=== PATIENT | female | born 1970 | race Caucasian/White ===

== ENCOUNTER 2018-02-22 20:39 | Emergency (ER) | payer SELFPAY ==
[2018-02-22 20:50] VITALS: BP 144/93
[2018-02-22] MEDS ORDERED: predniSONE TAB* 20 MG PO ONE (21:29)
--- NOTE | 2018-02-22 21:34 | UC ---
Skin Complaint HPI - HPI Summary HPI Summary: Patient complains of recurrent rash to the bilateral forearms, and feet x 1-2 months. Denies fever, cough, sore throat, CP, SOB, facial swelling, oral swelling, N/V/D, abdominal pain, change in urine or change in BM. Patient has been seen by primary care for this rash and has been on three 5 day courses of prednisone for same. Rash resolves each time after course of prednisone and then returns. Rash is pruritic, nonpainful. Medical history is none. Course of prednisone finished 2 weeks ago. - History of Current Complaint Chief Complaint: UCGeneralIllness Time Seen by Provider: 02/22/18 20:57 Stated Complaint: RASH Hx Obtained From: Patient Hx Last Menstrual Period: 02/02/18 Onset/Duration: Gradual Onset Skin Exposure Onset/Duration: Weeks Ago Timing: Intermittent Episodes Lasting: Current Severity: None Pain Intensity: 0 Pain Scale Used: 0-10 Numeric Location: Hand (Right), Hand (Left), Foot (Right), Foot (Left) Character: Pruritus, Redness Aggravating Factor(s): Nothing Alleviating Factor(s): Nothing Associated Signs & Symptoms: Positive: Negative - Allergy/Home Medications Allergies/Adverse Reactions: Allergies Allergy/AdvReac Type Severity Reaction Status Date / Time tramedol Allergy Hives Uncoded 02/22/18 20:50 Home Medications: Home Medications Aspirin/Acetaminophen/Caffeine [Excedrin Extra Strength Caplet] 1 tab PO Q8HR PRN 02/22/18 [History Confirmed 02/22/18] diphenhydrAMINE HCl [Benadryl Allergy] 25 mg PO Q12HR 02/22/18 [History Confirmed 02/22/18] Review of Systems Constitutional: Negative Skin: Rash Eyes: Negative ENT: Negative Respiratory: Negative Cardiovascular: Negative Gastrointestinal: Negative Genitourinary: Negative Motor: Negative Neurovascular: Negative Musculoskeletal: Negative Neurological: Negative Is Patient Immunocompromised?: No All Other Systems Reviewed And Are Negative: Yes PMH/Surg Hx/FS Hx/Imm Hx Previously Healthy: Yes - Surgical History Surgical History: None - Family History Known Family History: Positive: Other - cancer - Social History Alcohol Use: None Substance Use Type: None Smoking Status (MU): Heavy Every Day Tobacco Smoker Physical Exam - Summary Physical Exam Summary: Blanchable maculopapular rash on the dorsal surface of bilateral hands, bilateral feet and volar surface of bilateral distal forearms. Triage Information Reviewed: Yes Appearance: Well-Appearing Vital Signs: Initial Vital Signs Temp 98.6 F 02/22/18 20:44 Pulse 95 02/22/18 20:44 Resp 16 02/22/18 20:44 BP 144/93 02/22/18 20:44 Pulse Ox 99 02/22/18 20:44 Vital Signs Reviewed: Yes Eye Exam: Normal ENT Exam: Normal Neck exam: Normal Respiratory Exam: Normal Cardiovascular Exam: Normal Abdominal Exam: Normal Musculoskeletal Exam: Normal Neurological Exam: Normal Psychological Exam: Normal Skin: Positive: rashes Course/Dx - Course Course Of Treatment: Patient complains of recurrent rash to the bilateral forearms, and feet x 1-2 months. Denies fever, cough, sore throat, CP, SOB, facial swelling, oral swelling, N/V/D, abdominal pain, change in urine or change in BM. Patient has been seen by primary care for this rash and has been on three 5 day courses of prednisone for same. Rash resolves each time after course of prednisone and then returns. Rash is pruritic, nonpainful. Medical history is none. Course of prednisone finished 2 weeks ago. Physical exam: Blanchable maculopapular rash on the dorsal surface of bilateral hands, bilateral feet and volar surface of bilateral distal forearms. Vital signs normal. Patient started on prednisone 60 mg by mouth here in the UC. Rx for prednisone 40mg x 5 days. Follow-up with dermatology. Patient understands and agrees with plan - Diagnoses Provider Diagnoses: rash Discharge - Sign-Out/Discharge Documenting (check all that apply): Patient Departure All imaging exams completed and their final reports reviewed: No Studies - Discharge Plan Condition: Stable Disposition: HOME Prescriptions: predniSONE TAB* [Deltasone 20 MG TAB*] 40 mg PO DAILY 5 Days #5 tab Patient Education Materials: Acute Rash (ED) Referrals: Bonnie Hensley MD [Primary Care Provider] - Additional Instructions: Follow-up with dermatology. - Billing Disposition and Condition Condition: STABLE Disposition: Home - Attestation Statements Provider Attestation: Per institutional requirements, I have reviewed the chart, however, I was not consulted specifically or made aware of this patient by the midlevel provider. I did not personally evaluate, interact with , or disposition this patient.
== END 2018-02-22 21:40 | disposition home or self-care (01) ==
LOC: UCEAST 20:39
DX: R21 Rash and other nonspecific skin eruption (principal); Z88.5 Allergy status to narcotic agent; F17.200 Nicotine dependence, unspecified, uncomplicated
CPT/HCPCS: 99212; G0463; J7512

== ENCOUNTER 2018-11-19 20:48 | Emergency (ER) | payer OTHER ==
[2018-11-19] MEDS ORDERED: diPHENhydraMINE IV* 50 MG/ML 1 ml VIAL (BENADRYL) IV ONE (21:01)
[2018-11-19] MEDS ORDERED: Dexamethasone IV* 4 MG/ML 1 ML (4 MG) IV SLOW PU ONE (21:01)
[2018-11-19] MEDS ORDERED: Famotidine IV* 10 MG/ML 2 ML (20 mg) IV SLOW PU ONE (21:01)
[2018-11-19] MEDS ORDERED: NS 0.9% 1000 ML** 1,000 ML IV ONE (21:02)
[2018-11-19] MEDS ORDERED: Albuterol/Ipratropium NEB.SOL* Albuterol 2.5 MG/Ipratropium 0.5 MG 3 ML INH ONE ×2 (21:02→21:21)
[2018-11-19] MEDS ORDERED: Albuterol/Ipratropium NEB.SOL* Albuterol 2.5 MG/Ipratropium 0.5 MG 3 ML ONE (21:03)
[2018-11-19 21:21] VITALS: BP 167/97
--- NOTE | 2018-11-19 21:25 | UC ---
Shortness of Breath HPI - HPI Summary HPI Summary: Patient is a 48-year-old female who presents to the urgent care with a chief complaint of shortness of breath, generalized itching, rash in the chest, dry cough, similar symptoms as when I have an allergic reaction. The patient reports that she was working at [employer] where there was a lot of dust, and then she ate a chocolate which had coconut. 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 After she ate she developed the above symptoms. Patient has no significant past medical history. - History of Current Complaint Chief Complaint: UCRespiratory Stated Complaint: ALLERGIC REACTION Time Seen by Provider: 11/19/18 20:57 Hx Obtained From: Patient Hx Last Menstrual Period: 02/02/18 Onset/Duration: Sudden Onset Timing: Constant Current Severity: Moderate Dyspnea At: Rest - Allergy/Home Medications Allergies/Adverse Reactions: Allergies Allergy/AdvReac Type Severity Reaction Status Date / Time tramedol Allergy Hives Uncoded 02/22/18 20:50 PMH/Surg Hx/FS Hx/Imm Hx Previously Healthy: Yes - Surgical History Surgical History: None - Family History Known Family History: Positive: Other - cancer - Social History Alcohol Use: None Substance Use Type: None Smoking Status (MU): Heavy Every Day Tobacco Smoker Review of Systems All Other Systems Reviewed And Are Negative: Yes Constitutional: Positive: Negative Skin: Positive: Rash Eyes: Positive: Negative ENT: Positive: Negative Respiratory: Positive: Shortness Of Breath, Cough Cardiovascular: Positive: Negative Gastrointestinal: Positive: Negative Genitourinary: Positive: Negative Motor: Positive: Negative Neurovascular: Positive: Negative Musculoskeletal: Positive: Negative Neurological: Positive: Negative Psychological: Positive: Negative Is Patient Immunocompromised?: No Physical Exam - Summary Physical Exam Summary: VITAL SIGNS: Reviewed. GENERAL: Patient is a well developed and nourished female with some distress secondary to the shortness of breath. However, she is able to speak in partial sentences. HEAD AND FACE: Normocephalic and atraumatic. EYES: PERRLA, EOMI x 2, No injected conjunctiva. EARS: Hearing grossly intact. Ear canals and tympanic membranes WNL MOUTH: Dry oral mucosa. NECK: Supple, trachea is midline, no adenopathy, no JVD, no carotid bruit. CHEST: Symmetric, No intercostal or abdominal retraction, LUNGS: Diffuse bilateral wheezing and decreased breath sounds.No crackles. CVS: RRR,, S1 and S2 present, no murmurs or gallops appreciated. ABDOMEN: Soft, non-tender. No signs of distention. Positive BS. No rebound, no guarding, and no masses palpated. EXTREMITIES: FROM in all major joints, no edema, no cyanosis or clubbing. NEURO: Alert and oriented x 3. No acute neurological deficits. Speech is normal and follows commands. SKIN: Dry and warm Triage Information Reviewed: Yes Appearance: Other: - Dyspneic and tachycardic Vital Signs: Initial Vital Signs Temp 98 F 11/19/18 21:18 Pulse 97 11/19/18 21:18 Resp 24 11/19/18 21:18 BP 151/91 11/19/18 21:18 Pulse Ox 96 11/19/18 21:18 Shortness of Breath Dx - Course Course Of Treatment: In the urgent care the patient is having decreased breath sounds and diffuse wheezing. There is no swelling of the throat, is no swelling of the tongue or lips. Therefore, the patient was started and an IV access, IV fluids were started, and she was given Benadryl, Decadron, Pepcid and DuoNeb. I discussed the case with Dr. Steinberg and agrees for transfer to the ED. - Differential Dx/Diagnosis Provider Diagnosis: Allergic reaction Discharge - Sign-Out/Discharge Documenting (check all that apply): Patient Departure All imaging exams completed and their final reports reviewed: No Studies - Discharge Plan Condition: Stable Disposition: TRANS HIGHER LVL OF CARE FAC Patient Education Materials: Urticaria (ED) Referrals: Elizabeth Mckeon DO [Primary Care Provider] - Additional Instructions: Patient is being transfer to the ED via ambulance. - Billing Disposition and Condition Condition: STABLE Disposition: Trans Higher Lvl of Care Fac
== END 2018-11-19 21:40 | disposition short-term general hospital (02) ==
LOC: UCEAST 20:48
DX: T78.1XXA Other adverse food reactions, not elsewhere classified, initial encounter (principal); R21 Rash and other nonspecific skin eruption; L29.9 Pruritus, unspecified; R06.02 Shortness of breath; X58.XXXA Exposure to other specified factors, initial encounter; F17.210 Nicotine dependence, cigarettes, uncomplicated
CPT/HCPCS: 96361; 96374; 96375; 99213; A9270-GY; G0463; J1100; J1200

== ENCOUNTER 2018-11-19 21:57 | Emergency (ER) | payer OTHER ==
--- NOTE | 2018-11-19 22:03 | ED ---
Allergic Reaction/Systemic - HPI Summary HPI Summary: 48 yo female presents to [facility] via ambulance. She tells me that around 1999 this evening she accidentally ate a food product that contained coconut. Around 2029 she developed chest tightness that progressed to SOB. She presented to urgent care and was noted to have generalized itching, wheezing, and a rash on her chest. She also reported feeling that her throat felt "weird". She was given pepcid, solumedrol, and duoneb x2 in the with mild relief of her symptoms. Ambulance was called and she received another neb in the ambulance as well as epinephrine IM. Upon presenting to the ED she reports feeling significantly better and does not feel short of breath, but does have some wheezing. Currently denies facial edema, tongue/lip/throat edema, difficulty breathing, SOB, or chest pain. She does smoke daily. - History of Current Complaint Time Seen by Provider: 11/19/18 22:03 Hx Obtained From: Patient Hx Last Menstrual Period: 02/02/18 Onset/Duration: Sudden Onset Severity Initially: Moderate Severity Currently: Mild Pain Intensity: 2 Pain Scale Used: 0-10 Numeric - Allergies/Home Medications Allergies/Adverse Reactions: Allergies Allergy/AdvReac Type Severity Reaction Status Date / Time tramedol Allergy Hives Uncoded 02/22/18 20:50 PMH/Surg Hx/FS Hx/Imm Hx Respiratory History: Reports: Hx Asthma - Immunization History Immunizations Up to Date: Yes Infectious Disease History: No - Family History Known Family History: Positive: Other - cancer - Social History Occupation: Employed Full-time Lives: With Family Alcohol Use: None Substance Use Type: Reports: None Smoking Status (MU): Heavy Every Day Tobacco Smoker Review of Systems Constitutional: Negative Eyes: Negative ENT: Negative Cardiovascular: Negative Positive: Other - Wheezing Gastrointestinal: Negative Genitourinary: Negative Musculoskeletal: Negative Skin: Negative Neurological: Negative Psychological: Normal All Other Systems Reviewed And Are Negative: Yes Physical Exam - Summary Physical Exam Summary: GENERAL: NAD. WDWN. No pain distress. SKIN: No rashes, sores, lesions, or open wounds. HEENT: Head: AT/NC Eyes: Conjunctiva clear without inflammation or discharge. Ears: Hearing grossly normal. TMs intact, no bulging, erythema, or edema. Nose: Nasal mucosa pink and moist. NTTP maxillary and frontal sinus. Throat: Posterior oropharynx without exudates, erythema, or tonsillar enlargement. Uvula midline. NECK: Supple. Nontender. No lymphadenopathy. CHEST: Mild wheezing left lung. No r/r. No accessory muscle use. Breathing comfortably and in no distress. CV: RRR. Without m/r/g. Pulses intact. Cap refill <2seconds NEURO: Alert. PSYCH: Age appropriate behavior. Triage Information Reviewed: Yes Vital Signs On Initial Exam: Vital Signs: Temp Pulse Resp BP Pulse Ox 99.2 F 99 18 156/82 96 11/19/18 22:04 11/19/18 22:04 11/19/18 22:04 11/19/18 22:04 11/19/18 22:04 Vital Signs Reviewed: Yes Diagnostics - Laboratory Lab Results: Laboratory Tests 11/19/18 11/19/18 11/19/18 22:40 22:40 22:40 WBC 8.2 RBC 4.21 Hgb 13.3 Hct 39 MCV 93 MCH 32 H MCHC 34 RDW 14 Plt Count 225 MPV 8.0 Neut % (Auto) 79.0 Lymph % (Auto) 14.6 Morris % (Auto) 3.9 Eos % (Auto) 2.1 Baso % (Auto) 0.4 Absolute Neuts (auto) 6.5 Absolute Lymphs (auto) 1.2 Absolute Monos (auto) 0.3 Absolute Eos (auto) 0.2 Absolute Basos (auto) 0.0 Absolute Nucleated RBC 0.0 Nucleated RBC % 0.0 Sodium 141 Potassium 3.3 L Chloride 112 H Carbon Dioxide 24 Anion Gap 5 BUN 13 Creatinine 1.08 H Est GFR ( Amer) 65.0 Est GFR (Non-Af Amer) 53.7 BUN/Creatinine Ratio 12.0 Glucose 116 H Lactic Acid 1.1 Calcium 8.4 L Total Bilirubin 0.20 AST 17 ALT 18 Alkaline Phosphatase 54 Total Protein 6.2 L Albumin 3.9 Globulin 2.3 Albumin/Globulin Ratio 1.7 Result Diagrams: 11/19/18 22:40 11/19/18 22:40 Lab Statement: Any lab studies that have been ordered have been reviewed, and results considered in the medical decision making process. Re-Evaluation - Re-Evaluation First Eval Re-Evaluation Time: 23:24 Change: Improved Comment: Feeling well and has no complaints at this time. No SOB, difficulty breathing, wheezing, or itching. Allergic Reaction Course/Dx - Course Course Of Treatment: Pt with allergic reaction and possible early anaphylaxis to coconut (known allergy). She was given duoneb x3, pepcid, solumedrol, benadryl, and epi. Upon presentation to the ED pt had wheezing, but had significantly improved SOB/chest tightness. CXR: No radiologist reading after 1800, therefore wet read by myself was negative for acute disease. Upon re-eval pt was asymptomatic and wishing to be discharged. Will continue to monitor for a total of ~3 hours time and if remains asymptomatic without signs of reoccurring reaction, will dc. 0030 pt remained asymptomatic and without wheezing in lungs. She is feeling well and asking to be discharged. Will dc with epipen and prednisone. Advised to take a daily benadryl. Return to ED if symptoms return. - Diagnoses Provider Diagnoses: Allergic reaction Discharge - Sign-Out/Discharge Documenting (check all that apply): Patient Departure Patient Received Moderate/Deep Sedation with Procedure: No - Discharge Plan Condition: Stable Disposition: HOME Prescriptions: EPINEPHrine [Epipen 2-Tani] 0.3 mg IM ONCE PRN #1 inj PRN Reason: Allergy Symptoms predniSONE TAB* [Deltasone 20 MG TAB*] 40 mg PO DAILY #8 tab Patient Education Materials: Food Allergy (ED), Anaphylaxis (ED) Referrals: Elizabeth Mckeon DO [Primary Care Provider] - Additional Instructions: If you develop a fever, shortness of breath, chest pain, new or worsening symptoms - please call your PCP or go to the ED immediately. You have had an allergic reaction to Coconut. I have sent you in a prescription for an epi-pen and prednisone. Please take the prednisone for the next 4 days and take a daily benadryl to insure the reaction fully subsides without complications. - Billing Disposition and Condition Condition: STABLE Disposition: Home
[2018-11-19 22:47] LABS: ABS Eosinophils 0.2 10^3/ul (0-0.6); ABS Lymphocytes 1.2 10^3/ul (1.0-4.8); ABS Monocytes 0.3 10^3/ul (0-0.8); ABS Neutrophils 6.5 10^3/ul (1.5-7.7); Eosinophil % 2.1 %; Hematocrit 39 % (35-47); Hemoglobin 13.3 g/dL (12.0-16.0); Lymphocyte % 14.6 %; Mean Corpuscular HGB Conc 34 g/dL (31-36); Mean Corpuscular Hemoglobin 32 pg (27-31); Mean Corpuscular Volume 93 fL (80-97); Platelet Count 225 10^3/uL (150-450); Red Blood Count 4.21 10^6 /uL (3.70-4.87); Red Cell Distribution Width 14 % (10.5-15); White Blood Count 8.2 10^3/uL (3.5-10.8)
[2018-11-19 23:06] LABS: Albumin 3.9 g/dL (3.2-5.2); Albumin/Globulin Ratio 1.7 (1-3); Calcium 8.4 mg/dL (8.6-10.3); EGFR Non-African American 53.7 (>60); Globulin 2.3 g/dL (2-4); Potassium 3.3 mmol/L (3.5-5.0); Total Bilirubin 0.2 mg/dL (0.2-1.0); Total Protein 6.2 g/dL (6.4-8.9)
[2018-11-20 01:09] VITALS: BP 164/106
== END 2018-11-20 01:08 | disposition home or self-care (01) ==
LOC: ED 21:57
DX: T78.1XXA Other adverse food reactions, not elsewhere classified, initial encounter (principal); R06.2 Wheezing; X58.XXXA Exposure to other specified factors, initial encounter; Z88.5 Allergy status to narcotic agent; Z91.018 Allergy to other foods; F17.200 Nicotine dependence, unspecified, uncomplicated
CPT/HCPCS: 36415; 71046; 80053; 83605; 85025; 99284